=== PATIENT | female | born 1965 | race Two or more races ===

== ENCOUNTER 2018-09-25 14:59 | Emergency (ER) | payer MEDICAID ==
[~2018-09-25] VITALS: Ht 167.6 cm; Wt 100.0 kg
[2018-09-25] MEDS ORDERED: IBUPROFEN 600MG TABLET PO ONE (17:00)
[2018-09-25 18:09] VITALS: BP 122/76
== END 2018-09-25 18:10 | disposition home or self-care (01) ==
LOC: ER 14:59
DX: M79.672 Pain in left foot (principal); M79.671 Pain in right foot; E11.9 Type 2 diabetes mellitus without complications; I10 Essential (primary) hypertension; Z59.0 Homelessness
CPT/HCPCS: 99283